=== PATIENT | male | born 1950 | race Caucasian/White ===

== ENCOUNTER 2021-01-12 15:52 | Observation (INO) | payer MEDICARE, OTHER ==
[~2021-01-12] VITALS: Ht 180.3 cm; Wt 95.9 kg
[2021-01-12 17:12] LABS: HEMOGLOBIN 14.7 gm/dl (14.0-17.5); RED BLOOD COUNT 4.79 M/UL (4.20-5.50); WHITE BLOOD COUNT 8.8 K/UL (4.5-11.0)
[2021-01-12 17:33] LABS: BUN/CREATININE RATIO 16 (0-10)
[2021-01-13] MEDS ORDERED: LOSARTAN-HCTZ1 EAC1 PO (02:46)
[2021-01-13] MEDS ORDERED: AMLODIPINE BESYL5 MG PO (02:46)
[2021-01-13] MEDS ORDERED: POTASSIUM CHLO20 ME2 PO (02:47)
[2021-01-13 05:43] LABS: HEMOGLOBIN 14.3 gm/dl (14.0-17.5); RED BLOOD COUNT 4.66 M/UL (4.20-5.50); WHITE BLOOD COUNT 9.9 K/UL (4.5-11.0)
[2021-01-13 05:58] LABS: BUN/CREATININE RATIO 14 (0-10)
[2021-01-14 04:49] LABS: BUN/CREATININE RATIO 14 (0-10)
[2021-01-14] MEDS ORDERED: ASPIRIN EC81 MG PO (17:39)
[2021-01-14] MEDS ORDERED: PLAVIX75 MG PO (17:39)
[2021-01-14] MEDS ORDERED: ATORVASTATIN CA20 MG PO (17:39)
== END 2021-01-14 18:29 | disposition home or self-care (01) ==
LOC: ER1 15:52 → CDU 21:40 → M/S 21:40
PROVIDERS: Family Medicine; Internal Medicine; ADMIT Internal Medicine
DX: I63.89 Other cerebral infarction (principal); I10 Essential (primary) hypertension; R47.89 Other speech disturbances; I89.0 Lymphedema, not elsewhere classified; G83.24 Monoplegia of upper limb affecting left nondominant side; Z82.3 Family history of stroke; Z82.49 Family history of ischemic heart disease and other diseases of the circulatory system; Z79.899 Other long term (current) drug therapy; Z20.822 Contact with and (suspected) exposure to COVID-19
CPT/HCPCS: ECHO; 36415; 70450; 70498; 70544; 70551; 71045; 80048; 80053; 80061; 82550; 82553; 83036; 83735; 83874; 84443; 84484; 85025; 85610; 93005; 93270; 93306; 93880; 96372; 99285; G0378; J1650; Q9967; U0002